=== PATIENT | female | born 1950 | race Caucasian/White ===

== ENCOUNTER 2025-02-21 14:00 | Outpatient (AMB) | payer MEDICARE, BC, SELFPAY ==
--- NOTE | 2025-02-21 14:12 | A.OFFVIS_ITS ---
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 was unaware she had afib Artificial Intelligence Specialist Required: No Allergies prochlorperazine [From Compazine] Allergy (Mild, Verified 02/21/25 14:17) low bp Medication List - Last Reconciled 02/22/25 by Matheus Greene MD alprazolam 0.25 mg PO DAILY atenolol 50 mg PO BID atorvastatin 10 mg PO DAILY clonidine HCl 0.1 mg PO .qhs cyclobenzaprine 5 mg PO PRN gabapentin 300 mg PO TID ipratropium bromide intranasal losartan 100 mg PO DAILY pantoprazole 40 mg PO DAILY zolpidem 5 mg PO BEDTIME PRN HPI Comments Details: Thank you for referring Cynthia in cardiology consultation today for questionable atrial fibrillation. She says she has had palpitations for long time when she was in his 40s around perimenopausal time. No diagnose was made at that time. She said then she was doing well for many years and recently had some symptoms of palpitation but no prolonged irregular heartbeat or palpitations. She recently had a neurologic appointment due to tremors and was told that she might have had atrial fibrillation. She was not sure as to where that came from. She has longstanding history of hypertension which has been difficult control. She does have labile blood pressure. She had been tried on hydrochlorothiazide but developed lightheadedness to with and that had to be stopped. She also developed leg edema related to amlodipine therapy and that has been discontinued . She has noted leg swelling with even low-dose amlodipine at 2.5 mg. She comes in today and blood pressure is mildly elevated in the systolic 140s range. She says this is not unusual. She does have still intermittent leg edema especially warm weather and has developed some venous disease in his scheduled to see vascular surgery in near future. She denies any episodes of syncope. Denies any office episodes of orthopnea, PND, leg edema. She does have exertional shortness of breath. Denies any clear exertional chest pain. No neurologic events. She does complain of symptoms of fatigue during the day. She has never had workup for sleep apnea but says that she has not had a reason to pursue that. She says she does not sleep well all night. She does have component of anxiety. She is only taking clonidine at once a day at nighttime currently. [facility] Medical History (Updated 02/22/25 @ 14:34 by Matheus Greene MD) HTN (hypertension) Review of Systems Const Denies chills, Denies daytime sleepiness, Denies fatigue, Denies fever(s), Denies frequent falls, Denies poor appetite, Denies snoring, Denies stops breathing during sleep, Denies weakness, Denies weight gain and Denies weight loss Eyes Denies loss of vision ENT Denies dizziness and Denies hearing loss Card Denies chest pain, Denies claudication, Denies leg edema, Denies lightheadedness, Denies palpitations, Denies dyspnea, Denies dyspnea on exertion and Denies orthopnea Resp Denies cough, Denies excessive phlegm production, Denies dyspnea, Denies dyspnea on exertion, Denies snoring and Denies wheezing GI Denies abdominal pain, Denies hematochezia, Denies change in bowel habits, Denies nausea and Denies vomiting Denies urinary frequency and Denies dysuria Musc Denies arthralgias, Denies muscle weakness, Denies numbness and Denies other (frequent falls) Skin/Breast Denies nail changes and Denies rash Neuro Denies Abnormal speech present, Denies dizziness, Denies frequent falls, Denies loss of vision, Denies memory loss, Denies numbness and Denies weakness Psych Denies depression and Denies memory loss Endo Denies fatigue and Denies palpitations Blade/Lymph Reports easy bruising and Reports other (anemia) Aller/Immun Denies wheezing Physical Exam Vital Signs: Last Vital Signs Pulse 54 02/21/25 14:14 BP 144/78 H 02/21/25 14:14 BMI result Body Mass Index 27.8 Const General: cooperative, comfortable, no acute distress, alert, awake, Physically active, anxious and well groomed Nutritional Appearance: average body habitus Orientation/consciousness: patient oriented x3 Limitations: no limitations HEENT Head: Yes normocephalic and Yes atraumatic Neck Neck: Yes trachea midline, Yes supple and Yes no JVD Resp Effort & Inspection: normal respiratory effort Auscultation: clear to auscultation bilaterally Cardio Jugular venous distension: no JVD Palpation: normal PMI Rate: regular rate Rhythm: regular rhythm Heart sounds: S1 normal heart sound present, S2 normal heart sound present, no click, no gallops and no murmurs GI Auscultation: normal bowel sounds Skin General skin exam: no rashes or lesions noted Neuro General: patient oriented x3 and no focal motor deficits Speech: No Abnormal speech present Extrem General: Yes no clubbing, cyanosis or edema Psych Appearance: grossly normal Affect: Anxious affect present Office Procedures EKG Details: EKG shows sinus bradycardia at 54 beats per minute [id number], Complete Assessment & Plan Assessment & Plan (1) Short of breath on exertion: Code(s): R06.02 - Shortness of breath Plan: Shortness of breath on exertion in this elderly woman with multiple risk factors. Need to rule out structural heart disease. I do not see any echocardiogram done in the near future. She does have history of mitral valve prolapse although clinically does not have any significant mitral regurgitation. Will obtain echocardiogram to assess for LV systolic and diastolic function to evaluate for hypertensive heart disease as well as pulmonary hypertension to evaluate for mitral valve pathology. We discussed about change in guidelines for mitral valve prolapse diagnose. She understands agrees. She also has strong family history for coronary artery disease and has multiple risk factors for the same. I have therefore suggest her to undergo exercise myocardial perfusion imaging to further assess for the same. She understands and agrees. (2) Cardiac arrhythmia: Code(s): I49.9 - Cardiac arrhythmia, unspecified Plan: Patient with questionable history of atrial fibrillation. There was no clear recorded events. She does not have any symptoms suggestive of atrial fibrillation prolonged palpitation. She does have occasional symptoms of skipped heartbeats which might be related to extra systoles such as PACs and PVCs. Will suggest a 7 day Holter monitor to rule out any significant arrhythmias. Diagnose of atrial fibrillation will manager exchange and therefore it is important to pursue diagnose if possible. I have advised her to consider investing in smart phone based EKG device to help us with any symptomatic atrial fibrillation diagnose. She understands agrees. Stress mitigation strategies were discussed. Avoidance of stimulants was discussed. (3) HTN (hypertension): Code(s): I10 - Essential (primary) hypertension Category: Medical Plan: Hypertension which appears to be labile with intolerance to lot of different medications. We discussed about pathophysiology of leg edema and amlodipine therapy. She does not have venous disease and this might explain her leg edema. She is going to follow up with vascular surgery in near future to treat that. Once status done may consider restarting amlodipine therapy again. She is having symptoms of fatigue which is probably related to combination use of atenolol and clonidine causing chronotropic incompetence. Consider tapering and discontinuing clonidine therapy. Follow-up blood pressure readings and if she has significantly elevated blood pressure at that point time can consider an alternative therapy including spironolactone therapy. Low-salt diet was discussed. Stress mitigation strategies were discussed. Target goal LDL less than 100 mg/dL for now Follow up in the clinic in 3 months time, sooner p.r.n.. Orders: Orders CA stress test Today R06.02 - Shortness of breath NM cardiolite stress test 2 Weeks R07.9 - Chest pain, unspecified ECG 7 day holter monitor Today I49.9 - Cardiac arrhythmia, unspecified CA echo transthoracic complete Today I10 - Essential (primary) hypertension Medications: New clonidine HCl 0.1 mg PO .qhs Coding Level of Care Code New Pt Level 4 (32475) Complex EM visit Add On G2211 Diagnoses Short of breath on exertion R06.02 Cardiac arrhythmia I49.9 HTN (hypertension) I10 CPT Codes EKG - CPT: 26229-[id number], Complete ([id number])
[2025-02-21 14:14] VITALS: BP 144/78; PULSE 54; BMI 27.8
--- OUTSIDE RECORDS SUMMARY | 2025-02-21 15:57 | XMS_ITS | Clinical Summary ---
Author Organization [facility] Address [address] [place] [address] Care Team Providers Care Labor Employment Associate Name Role Phone Colin Carlson MD Primary Care Provider [phone] Allergies Active Allergy Reactions Criticality Noted Date Comments Prochlorperazine Other (See Comments) Low 5 Ringing in ears, and dizziness Medications gabapentin (NEURONTIN) 300 MG capsule Take 1 capsule (300 mg total) by mouth 2 times a day. Active cyclobenzaprine (FLEXERIL) 5 MG tablet Take 1 tablet (5 mg total) by mouth. Active losartan (COZAAR) 100 MG tablet Take 1 tablet (100 mg total) by mouth daily. 07/02/2024 Active atenolol (TENORMIN) 50 MG tablet Take 1 tablet (50 mg total) by mouth 2 times a day. Active atorvastatin (LIPITOR) 10 MG tablet Take 1 tablet (10 mg total) by mouth. 06/30/2024 Active PANTOprazole (PROTONIX) 40 MG EC tablet Take 1 tablet (40 mg total) by mouth. Active cloNIDine (CATAPRES) 0.1 MG tablet 1 tablet (0.1 mg total) by Mouth/Oral Cavity route every 12 hours. 07/12/2024 Active zolpidem (AMBIEN) 5 MG tablet Take 1 tablet (5 mg total) by mouth nightly as needed. Active cyanocobalamin (VITAMIN B-12) 250 MCG tablet Take 1 tablet (250 mcg total) by mouth. Active multivitamin with minerals (Oncovite) Tab tablet Take 1 tablet by mouth daily. Active ALPRAZolam (XANAX) 0.25 MG tablet 1 tablet by Mouth/Oral Cavity route every 12 hours. 12/08/2024 Active ipratropium (ATROVENT) 0.06 % nasal sprayIndication s:Vasomotor rhinitis 2 sprays into each nostril 3 (three) times a day. 15 mL 11 12/22/2024 Active Active Problems Problem Noted Date Diagnosed Date Diverticulitis 09/27/2024 Gastroesophageal reflux disease 09/27/2024 Hypertension 09/27/2024 Mitral valve prolapse 09/27/2024 Encounters Date Type Department Care Team Description 01/31/2025 10:30 AM EDT Office Visit [facility] [place] [address] [place] [address] Ramiro Reynolds MD Familial tremor (Primary Dx); Idiopathic peripheral neuropathy; Vitamin D deficiency, unspecified; Tachycardia; Hypertension, unspecified type; Mitral valve prolapse 01/31/2025 Travel 12/22/2024 11:00 AM EDT Office Visit [facility] [address] [id number] Brannon Mark MD Acute non-recurrent maxillary sinusitis (Primary Dx); Vasomotor rhinitis 12/05/[address] [facility] [address] [place] [id number] Ramiro Reynolds MD 11/30/2024 Orders Only [facility] [place] [address] [place] [phone] Neurology, Scan from Last 3 Months Family History Medical History Relation Name Comments Tremor Brother Parkinson's disease Cousin Heart disease Father Tremor Father Lupus Mother at the age of 29 Relation Name Status Comments Brother Cousin Alive Father Mother Social History Tobacco Use Types Packs/Day Years Used Date Smoking Tobacco: Never Smokeless Tobacco: Never Tobacco Cessation:Counseling Given: Not Answered Alcohol Use Standard Drinks/Week Comments Not Currently 0 (1 standard drink = 0.6 oz pur e alcohol) Comments No Sex and Gender Information Value Date Recorded Sex Assigned at Not on file Legal Sex Female 12:39 PM EST Gender Identity Not on file Sexual Orientation Not on file 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 Not on file Not on file Last Filed Vital Signs Vital Sign Reading Time Taken Comments Blood Pressure 189/71 10/17/2024 12:34 PM EST Pulse 62 10/17/2024 12:34 PM EST Temperature - - Respiratory Rate 12 10/17/2024 12:34 PM EST Oxygen Saturation 96% 01/31/2025 10:34 AM EDT Inhaled Oxygen Concentration - - Weight 69.9 kg (154 lb) 01/31/2025 10:34 AM EDT Height 160 cm (5' 3 ) 01/31/2025 10:34 AM EDT Body Mass Index 27.28 01/31/2025 10:34 AM EDT Plan of Treatment Upcoming Encounters Date Type Department Care Team (Late st Contact Info) Description 04/21/2025 3:00 PM EDT Consult [facility] [place] [facility] [address] [place] [address] Ramiro Reynolds MD [address] [address] Cecy Disla MD [address] [place] [address] 06/20/2025 2:00 PM EDT Procedure visit [facility] [address] [place] [address] [address] [place] [address] Ramiro Reynolds MD [address] [facility] [address] [place] [address] Idris Calvert MD [address] [place], [place] [address] 08/07/2025 11:00 AM EST Office Visit [facility] [place] [address] [place] [phone] Ramiro Reynolds MD [address] [facility] [address] [place] [address] Health Maintenance Due Date Last Done Comments Hepatitis C Virus Screening 1950 DTaP/Tdap/Td Vaccines (1 - Tdap) 1967 Pneumococcal Vaccines 50+ (1 of 2 - PCV) 1967 Zoster (Shingles) Vaccine (1 of 2) 1998 DXA Bone Density (Females,Ag es 65 and older) 2013 RSV Vaccine 60 years and old er and Patients (1 - 1-dose 75+ series) 2023 COVID-19 Vaccine (2 - 2023-2 5 season) 2024 09/11/2021 Influenza Vaccine 04/21/2025 09/11/2021 Hepatitis B Vaccines Aged Out No long er eligible based on patient's age to complete this topic Procedures Procedure Name Priority Date/Time Associated Diagnosis Comments PATHOLOGY Routine 11/30/2024 8:17 AM EDT from Last 3 Months Results * Pathology (11/30/2024 8:17 AM EDT) Skin us Scan Neurology PATHOLOGY/CYTOLOGY ORDERABLES Ed ited Result - Final from Last 3 Months Insurance MEDICARE PART A & B [facility] MEDICARE PART A & B [facility] Care Teams Labor Employment Associate Relationship Specialty Start Date End Date Colin Carlson MD [facility] Hilariochristopher [place] [address] [address] PCP - General 09/06/24
== END 2025-02-21 14:57 | disposition home or self-care (01) ==
LOC: HO.HCS 14:09
PROVIDERS: Visit Provider Internal Medicine Cardiovascular Disease
DX: R06.02 Shortness of breath (principal); I49.9 Cardiac arrhythmia, unspecified; I10 Essential (primary) hypertension
CPT/HCPCS: 93010; 99204; G2211

== ENCOUNTER → 2025-02-21 14:00 | Outpatient (BNVA) | payer MEDICARE, BC, SELFPAY | PROVIDERS: Visit Provider Internal Medicine Cardiovascular Disease | DX: I10 Essential (primary) hypertension (principal); I49.9 Cardiac arrhythmia, unspecified; R06.02 Shortness of breath; R60.0 Localized edema; R00.2 Palpitations | CPT/HCPCS: 93005; 99202 ==

== ENCOUNTER → 2025-04-05 14:03 | Outpatient (REF) | payer MEDICARE, BC, SELFPAY ==
--- OUTSIDE RECORDS SUMMARY | 2025-03-20 05:15 | XMS_ITS | Continuity of Care Document ---
Author Organization [facility] Address [address] [place] [address] Phone Care Team Providers Care Hair Dryer Name Role Phone Luda Parada MD Unavailable Unavailable Allergies, Adverse Reactions, Alerts Substance Reaction Status Criticality epinephrine Active No Information DIPHENHYDRAMINE HCL Active No Infor mation Medications Medication Instructions Dosage Effective Dates (start - stop) Status Comments clonidine HCl 0.2 mg tablet - Ac tive cyclobenzaprine 5 mg tablet - Ac tive atenolol 25 mg tablet - Active gabapentin 100 mg capsule - Acti ve losartan 25 mg tablet - Active Xanax 0.25 mg tablet - Active Procedures Procedure Date Duplex Scan-extrem Veins; Uni/ [place] & [place] J Duplex Scan-extrem Veins; Uni/ [place] & [place] J Inj Scleros Solut; Mx Veins 1- [place] & [place] J Ultrason Guidan Needle Bx-rad- [place] & [place] J Varithena, Single Truncal Vein - [place] & [place] Varithena, Single Truncal Vein - [place] & [place] Office/Outpt E&M Established 15 Mins- [place] & [place] Surgical Stockings CVR Reveal Panty 20-3 0 Office/Oupt E&M New Pt 60 Mins- [place] & [place] Duplex Scan-extrem Veins; Comp- [place] & [place] Advance Directives Directive Yes / No Effective Date File Name No Information Encounters Encounter Description Practice Location Reason(s) For Visit Diagnoses Date Provider Providers Copied on Encounter [facility] MD STEIN, [address] [place] [address] Dr Beckham [address] [address], [id number], tel:[phone] [facility] [place] Encounter for follow-up examination after completed treatment for conditions other than malignant neoplasmChroni c venous hypertension (idiopathic) with other complications of right lower extremity 5 Karma Lares. [address] [place] [address], [address], [place], [place], [id number], [place]. tel:[phone] Referring Provider: Thais Payan [facility] [address], [place], [address]. tel:[phone] [facility], [address] [place] [address] Dr Beckham [address] [address], [id number], [place] tel:[phone] [facility] Encounter for follow-up examination after completed treatment for conditions other than malignant neoplasmChroni c venous hypertension (idiopathic) with other complications of right lower extremity 5 Rosalino BURGESS RVT, VERONICA Perales. [address] [place] [address], [place], [id number], [place]. tel:[phone] Referring Provider: Thais Payan [facility] [address], [place], [address]. tel:[phone] [facility], [address] [place] [address] Dr Bekcham [address], [id number], [place] tel:[phone] [facility] Chronic venous hypertension (idiopathic) with inflammation of right lower extremity 5 Rosalino BURGESS RVT, VERONICA Perales. [address] [place] [address], [place], [id number], [place]. tel:[phone] Referring Provider: Thais Payan [facility] [address], [place], [address]. tel:[phone] [facility], [address] [place] [address] Dr Beckham [address], [id number], [place] tel:[phone] [facility] - [place] Varicose veins of right lower extremity with other complications Davion-2 5 Rosalino BURGESS RVT, VERONICA Perales. [address] [facility], [address], [place], [id number], [place]. tel:[phone] Referring Provider: Thais Payan [facility] [address], [place], [address]. tel:[phone] [facility], [address] [place] [address] Dr Beckham [address], [id number], [place] tel:[phone] [facility] Chronic venous hypertension (idiopathic) with inflammation of right lower extremity Davion-2 5 Rosalino BURGESS RVT, VERONICA Perales. [address] [place] [address], [address], [place], [id number], [place]. tel:[phone] Referring Provider: Thais Payan [facility] [address], [place], [address]. tel:[phone] Office/Outpt E&M Established 15 [facility] [place] [facility], [address] [place] [address] Dr Beckham [address], [id number], [place] tel:[phone] [place] - [place] Chronic venous hypertension (idiopathic) without complications of bilateral lower extremity Davion-2 5 Rosalino BURGESS RVT, VERONICA Perales. [facility], [address], [place], [id number], [place]. tel:[phone] Referring Provider: Thais Payan [facility] [address], [place], [address]. tel:[phone] [facility], [address] [place] [address] Dr Beckham [address]Suite Aisha Navarro [place], [id number], [place] tel:[phone] CVR - [facility] Chronic venous hypertension (idiopathic) without complications of bilateral lower extremity 5 Rosalino BURGESS RVT, VERONICA Perales. [address] [place] [address], [place], [id number], [place]. tel:[phone] Office/Oupt E&M New Pt 60 Mins- [place] & [place] [facility], [address] [place] [address] Dr Beckham [address], [id number], [place] tel:[phone] CVR - [facility] Chronic venous hypertension (idiopathic) without complications of bilateral lower extremityEssen tial (primary) hypertensionVe nous insufficiency (chronic) (peripheral) 5 Rosalino BURGESS RVT, VERONICA Perales. [address] [place] [address], [place], [id number], [place]. tel:[phone] Referring Provider: Thais Payan [facility] [address], [place], [address]. tel:[phone] [facility], [address] [place] [address] Dr Beckham [address] [place], [id number], [place] tel:[phone] [facility] Chronic venous hypertension (idiopathic) with other complications of bilateral lower extremity 5 Rosalino BURGESS RVT, VERONICA Perales. [address] [place] [address], [place], [id number], [place]. tel:[phone] Referring Provider: Thais Payan [facility] [address], [place], [address]. tel:[phone] Family History Family Member Type Diagnosis Age At Onset No Information Payers Payer name Insurance type Covered democrat ID Authoriza tion(s) Medicare SHAGGY GREENE [id number] Social History Type Description Quantity Date Captured Comments Sex Female Smoking Status No Information Chief Complaint And Reason For Visit No Information Reason For Referral Reason For Referral No Information Plan Of Treatment Date Type Action Status Goal Diet education completed Goal Diet education completed Referral Ordered: Weight management: Referral to physician timeframe: 3 Months (related to Body mass index (BMI) 27.0-27.9, adult) ordered Referral Ordered: Weight management: Referral to physician timeframe: 3 Months (related to Body mass index (BMI) 27.0-27.9, adult) ordered Appointment Cynthia Thomas BOOKED Appointment Cynthia Thomas BOOKED Appointment ThomasLyle chauhanry BOOKED Appointment Thomas, Cynthia BOOKED Appointment ThomasLyle chauhanry BOOKED Appointment Lyle Thomasry BOOKED Appointment Cynthia Thomas BOOKED History Of Present Illness Encounter Date Complaint History Of Prese nt Illness No Information Functional Status Date Functional Assessmen t No Information Instructions Date Instruction Additional Infor asia Diet education Related to Body mass index (BMI) 27.0-27.9, adult Giving Encouragement to exercise Related to Body mass index (BMI) 27.0-27.9, adult Lifestyle education Related to B theresa mass index (BMI) 27.0-27.9, adult Patient education booklet given Related to Chronic venous hypertension (idiopathic) without complications of bilateral lower extremity Pre and post instruc tions reviewed and provided Related to Chronic venous hypertension (idiopathic) without complications of bilateral lower extremity Patient education booklet given Related to Chronic venous hypertension (idiopathic) without complications of bilateral lower extremity Pre and post instruc tions reviewed and provided Related to Chronic venous hypertension (idiopathic) without complications of bilateral lower extremity Diet education Related to Body mass index (BMI) 27.0-27.9, adult Giving Encouragement to exercise Related to Body mass index (BMI) 27.0-27.9, adult Lifestyle education Related to B theresa mass index (BMI) 27.0-27.9, adult Assessments Type Assessment Date No Information Patient Care Teams Name Effective Dates (start - stop) Status Members No Information
--- NOTE | 2025-04-05 14:07 | HM_ITS ---
Conclusion: 1. Patient was monitored for total period of 2 days and 5 hours 2. Baseline was normal sinus rhythm with average heart rate of 61 beats per minute 3. Frequent sinus bradycardia noted, 52% of time heart rate below 60 beats per minute with no significant pauses 4. Rare PACs noted next 5. Patient marked the counter 1 time with no reported symptoms correlating with short run of PACs MTDD
--- NOTE | 2025-04-05 14:07 | CA_ITS ---
Transthoracic Echocardiogram Patient (Last, First, Middle): Cynthia Thomas M Gender: Female Date of : 1950 Age: 74 Procedure Date: 04/05/2025 Procedure Type: Transthoracic Echocardiogram Location: OP Height: 160.02 cm Weight: 69.85 kg BSA: 1.73 m2 Heart Rate: bpm BP: 148 / 68 mmHg Flight Crew Scheduler: Referring MD: Matheus Greene MD Symptoms: I10 - Essential (primary) hypertension Study Quality: Good ECG Rhythm: Sinus Conclusions: - The left ventricular systolic function is normal. The calculated ejection fraction is 64% by biplane method. - Evidence suggests grade II (moderate) diastolic dysfunction. - No obvious valvular pathology seen on this study. Findings Left Ventricle Normal left ventricular cavity size. The left ventricular systolic function is normal. The calculated ejection fraction is 64% by biplane method. There is no evidence of regional wall motion abnormalities. Evidence suggests grade II (moderate) diastolic dysfunction. There is mild septal asymmetric hypertrophy. LV peak GLS -19.8%. Right Ventricle Normal right ventricular cavity size and systolic function. Atria The left atrium is mildly dilated. The right atrium is normal in size. Aortic Valve There is a normal trileaflet aortic valve. There is no aortic valve stenosis. There is no aortic valve regurgitation. Mitral Valve The mitral valve appears normal. There is mild mitral valve regurgitation. There is no mitral valve stenosis. Pulmonic Valve The pulmonic valve is likely normal. Tricuspid Valve There is trace tricuspid valve regurgitation. There is no evidence of pulmonary hypertension. Great Vessels The asc aorta is normal in size. Venous The inferior vena cava is normal in size and collapses greater than 50% with inspiration. Pericardium/Pleural There is no evidence of pericardial effusion. Prior Study Comparison No prior study available for comparison. Recommendations, Care & Conclusions No obvious valvular pathology seen on this study. Measurements 2D Linear Measurements IVSd: 1.02 0.6-0.9/0.6-1.0 cm LVIDd: 4.65 3.9-5.3/4.2-5.9 cm LVIDd Index: 2.69 2.4-3.2/2.2-3.1 cm/m2 LVIDs: 2.94 2.0-3.6 cm LVPWd: 0.98 0.7-1.1 cm Ao Root: 2.70 2.1-3.5 cm LA Diam: 3.30 2.7-3.8/3.0-4.0 cm LAIDs Index: 1.91 1.5-2.3 cm/m2 LV Mass: 201.41 67-162/88-224 g LV Mass Index: 116.42 43-95/49-115 g/m2 LVOT Diam: 2.00 3.0+(-)1.3 cm 2D Systolic Function EF 4C: 65.50 >55% EF 2C: 62.70 >55% EF BiP: 63.50 >55% Mitral Valve MV Pk E: 1.02 MV PK A: 0.90 MV Decel Time: 209.00 E/A: 1.10 E'Lateral: 7.29 E'Medial: 5.44 E/E' Med: 18.80 E/E' Lat: 14.00 PHT: 61.00 MVA PHT: 3.61 Decel Pierce: 4.88 Aortic Valve AoV Pk Vinny: 1.38 AoV Mn Vinny: 0.93 AoV VTI: 0.35 AoV Pk Grad: 8.00 Aov Mn Grad: 4.00 REGGIE Cont.VTI: 2.17 LVOT LVOT Pk Vinny: 0.84 LVOT Mn Vinny: 0.56 LVOT VTI: 0.24 LVOT Pk Grad: 3.00 LVOT Mn Grad: 1.00 LVOT Diam: 2.00 LVOT Area: 3.14 Diastolic Function MV Pk E: 1.02 MV Pk A: 0.90 E/A: 1.10 E'Medial: 5.44 E/E' Med: 18.80 E' Laterial: 7.29 E/E' Lat: 14.00 Right Ventricle TAPSE (mm): 27.00 TVS' Vinny: 10.00 Tricuspid Valve TR Pk Vinny: 2.00 TR Pk Grad: 16.00 RA Press: 3.00 RVSP: 19.00 Great Vessels Aorta Ao Root-2D: 2.70 2.0-3.7 cm Ao Asc: 3.00 2.1-3.4 cm Pulmonary Valve PV Pk Vinny: 0.79 Peak PV Grad: 3.00 Updated in Other Vendor System with Status of Final Javier Cueto MD electronically signed on 04/06/2025 3:21:08 PM with status of Final
--- OUTSIDE RECORDS SUMMARY | 2025-04-05 14:50 | XMS_ITS | Clinical Summary ---
Author Organization [facility] Address [address] [place] [address] Care Team Providers Care Grit Removal Operator Name Role Phone Colin Carlson MD Primary Care Provider [phone] Allergies Active Allergy Reactions Criticality Noted Date [...] Description 01/31/2025 10:30 AM EDT Office Visit [facility] Neurology [place] [address] [place] [phone] Ramiro Reynolds MD Familial tremor (Primary Dx); Idiopathic peripheral neuropathy; Vitamin D deficiency, unspecified; Tachycardia; Hypertension, unspecified type; Mitral valve prolapse 01/31/2025 Travel from Last 3 Months Family History Medical [...] Info) Description 04/21/2025 3:00 PM EDT Consult [facility] [place] [address] [facility] [address] [place] [phone] Ramiro Reynolds MD [address] [facility] [address] [place] [address] Cecy Disla MD [address] [place] [address] [place] [address] 06/20/2025 2:00 PM EDT Procedure visit [facility] Neuromuscular [facility] [address] [facility] [address] [place] [address] Ramiro Reynolds MD [address], [place] [address] Idris Calvert MD [address] [place] [address] 08/07/2025 11:00 AM EST Office Visit [facility] Neurology [place] [address] [place] [id number] Ramiro Reynolds MD [address] [place] [address] Health Maintenance Due Date Last Done Comments [...] on patient's age to complete this topic Insurance MEDICARE PART A & B [facility] [email or web address] MEDICARE PART A & B [employer] Care Teams Grit Removal Operator Relationship Specialty Start Date End Date Colin Carlson MD [address] [facility] [place] [address] [id number] PCP - General 09/06/24
--- OUTSIDE RECORDS SUMMARY | 2025-04-05 14:50 | XMS_ITS ---
Author Name [facility] ([place], [place]) Organization Unknown History of Medication Use Medication Directions Dispensed Refills Start Date End Date Stat us ipratropium (ATROVENT) 0.06 % nasal spray 2 sprays into each nostril 3 (three) times a day. 12/22/2024 active ALPRAZolam (XANAX) 0.25 MG tablet 1 tablet by Mouth/Oral Cavity route every 12 hours. 12/08/2024 active cloNIDine (CATAPRES) 0.1 MG tablet 1 tablet (0.1 mg total) by Mouth/Oral Cavity route every 12 hours. 07/12/2024 active ALPRAZolam (XANAX) 0.5 MG tablet Take 1 tablet (0.5 mg total) by mouth nightly as needed. active cyanocobalamin (VITAMIN B-12) 250 MCG tablet Take 1 tablet (250 mcg total) by mouth. active gabapentin (NEURONTIN) 300 MG capsule Take 1 capsule (300 mg total) by mouth 2 times a day. active PANTOprazole (PROTONIX) 40 MG EC tablet Take 1 tablet (40 mg total) by mouth. active zolpidem (AMBIEN) 5 MG tablet Take 1 tablet (5 mg total) by mouth nightly as needed. active Allergies Allergen Reaction Severity Comment Documented Date Source Statu s PROCHLORPERAZINE OTHER (SEE COMMENTS) Ringing in ears, and dizziness 09/27/2024 [facility] active Problems Problem Status Onset Date Problem Type Date of Resolution Source Hypertension active 2024-09-27 ProblemAct [facility] Idiopathic peripheral neuropathy active EncounterDiagnosisAct [facility] Mitral valve prolapse active 2024-09-27 ProblemAct [facility] Tachycardia active EncounterDiagnosisAct [facility] Gastroesophageal reflux disease active 2024-09-27 ProblemAct [facility] Familial tremor active EncounterDiagnosisAct [facility] Vitamin D deficiency, unspecified active EncounterDiagnosisAct [facility] Diverticulitis active 2024-09-27 ProblemAct [facility] Encounters Encounter Type Encounter Reason Primary Diagnosis Location Date Ambulatory Essential tremor Essential tremor [facility]:Net 01/31/2025 Ambulatory Sinus Problem Sinus Problem [facility] 12/22/2024 Ambulatory Parkinson's disease without dyskinesia, 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, without mention of fluctuations [facility] 11/01/2024 Ambulatory Chronic migraine without aura, intractable, without status migrainosus Chronic migraine without aura, intractable, without status migrainosus [facility] 10/17/2024 Ambulatory Migraine without aura, not intractable, without status migrainosus Migraine without aura, not intractable, without status migrainosus [facility] 09/28/2024 Ambulatory Parkinson's disease without dyskinesia, 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
--- OUTSIDE RECORDS SUMMARY | 2025-04-05 14:50 | XMS_ITS | Clinical Summary ---
Author Organization [address] [place] [address] [place] [phone] Phone Care Team Providers Care Home Teaching Grades 9 Thru 12 Teacher Name Role Phone Gilbert Carlson MD Primary Care Provider [phone] Medications pantoprazole (PROTONIX) 40 mg EC tabletIndicatio ns:GERD (gastroesophage al reflux disease) TAKE 1 TABLET BY MOUTH EVERY DAY 90 tablet 1 11/10/2024 Active losartan (COZAAR) 50 mg tablet TAKE 1 TABLET BY MOUTH EVERY DAY IN THE EVENING 90 tablet 1 12/27/2024 Active cloNIDine (CATAPRES) 0.1 mg tablet TAKE 1 TABLET BY MOUTH TWICE A DAY 180 tablet 1 02/06/2025 Active Encounters Date Type Department Care Team Description 03/06/2025 Telephone [facility] Cardiology [address] [place] [address] [place] [address] Justine Gregg NP 02/21/[address] [place] [address] Gilbert Carlson MD Medical Records 02/15/2025 Telephone Gastroenterology - [address] [place] [address] Juana Tapia MD Advice Only from Last 3 Months Surgical History Surgery Date Site/Laterality Comments COLONOSCOPY PROCEDURE: HISTORICAL COLONOSCOPY OTHER SURGICAL HISTORY PROCEDURE: DIAGNOSTIC MAMMOGRAM Medical History Medical History Date Comments Hyperlipidemia DX:Hyperlipidemi a Essential hypertension DX:Essent ial hypertension Choroidal nevus DX:Choroidal nev us Diverticulosis of colon DX:Diver ticulosis of colon GERD (gastroesophageal reflux disease) DX:GERD (gastroesophageal reflux disease) Insomnia DX:Insomnia IBS (irritable bowel syndrome) D X:IBS (irritable bowel syndrome) Migraine DX:Migraine Spinal stenosis DX:Spinal stenos is Anxiety DX:Anxiety Carpal tunnel syndrome DX:Carpal tunnel syndrome Family History Medical History Relation Name Comments Other: Cardiovascular Disease Father Other: lupus Mother Relation Name Status Comments Father Mother Social History Tobacco Use Types Packs/Day Years Used Date Smoking Tobacco: Never Smokeless Tobacco: Never Alcohol Use Standard Drinks/Week Comments Yes 0 (1 standard drink = 0.6 oz pur e alcohol) Comments Unknown Sex and Gender Information Value Date Recorded Sex Assigned at Not on file Legal Sex Female 10:09 AM EST Gender Identity Not on file Sexual Orientation Not on file Obstetrics History Last Filed Vital Signs Vital Sign Reading Time Taken Comments Blood Pressure 136/74 07/14/2024 9:25 AM EDT Sit ting L Arm Pulse 71 07/14/2024 9:25 AM EDT Temperature - - Respiratory Rate - - Oxygen Saturation - - Inhaled Oxygen Concentration - - Weight 71.2 kg (157 lb) 07/14/2024 9:25 AM EDT Height 160 cm (5' 3 ) 07/14/2024 9:25 AM EDT Body Mass Index 27.81 07/14/2024 9:25 AM EDT Plan of Treatment Health Maintenance Due Date Last Done Comments DTaP,Tdap,and Td Vaccines (1 - Tdap) 1967 Pneumococcal Vaccine: 50+ Years (1 of 1 - PCV) 1998 Zoster Vaccines (1 of 2) 1998 Cholesterol Screening (Lipid Panel) 08/19/2022 Depression Screening 08/19/2022 Falls Risk Assessment 08/19/2022 Hepatitis C Screening 08/19/2022 Medicare Annual Wellness Visit 08/19/2022 Osteoporosis Screening (Bone Density Screening) 08/19/2022 Social Influencers of Health Screening 08/19/2022 Hypertension/CHF/CAD Annual BMP Blood Test 09/06/2022 09/03/2018, 09/03/2018 RSV Immunization Adult Patients (1 - 1-dose 75+ series) 2023 COVID-19 Vaccine ( - 2023-2 5 season) 2024 Influenza Vaccine (#1) 2025 9, 08/23/2018 HIB Vaccines Aged Out No longer eligi ble based on patient's age to complete this topic HPV Vaccines Aged Out No longer eligi ble based on patient's age to complete this topic Hepatitis A Vaccines Aged Out No long er eligible based on patient's age to complete this topic Hepatitis B Vaccines Aged Out No long er eligible based on patient's age to complete this topic IPV Vaccines Aged Out No longer eligi ble based on patient's age to complete this topic MMR Vaccines Aged Out No longer eligi ble based on patient's age to complete this topic Meningococcal ACWY Vaccine Aged Out N o longer eligible based on patient's age to complete this topic Meningococcal B Vaccine Aged Out No l onger eligible based on patient's age to complete this topic RSV Immunization Patients Under 20 months Aged Out No longer eligible b ased on patient's age to complete this topic Varicella Vaccines Aged Out No longer eligible based on patient's age to complete this topic Insurance MEDICARE Care Teams Home Teaching Grades 9 Thru 12 Teacher Relationship Specialty Start Date End Date Gilbert Carlson MD [address] [place] [address] PCP - General 09/23/16
--- OUTSIDE RECORDS SUMMARY | 2025-04-05 14:50 | XMS_ITS | Clinical Summary ---
Author Organization [facility] Address [address] [place] [address] Care Team Providers Care Kettle Fry Cook Operator Name Role Phone Unavailable Primary Care Provider Unavailabl e Allergies Active Allergy Reactions Criticality Noted Date Comments Prochlorperazine 09/03/2018 Diphenhydramine Other (See Comments) 09/03/2018 (Benedryl) Procaine 09/03/2018 Medications Medication Sig Dispensed Refills Start Date End Date Status ALPRAZolam (XANAX) 0.25 MG tablet Take 0.25 mg by mouth every 12 (twelve) hours as needed. 5 08/21/2018 Active amLODIPine (NORVASC) tablet 5 mg Take 5 mg by mouth daily. 3 08/11/2018 Active cyclobenzaprine (FLEXERIL) 5 MG tablet TAKE 1 TO 2 TABLETS BY MOUTH 3 TIMES A DAY NEEDED FOR MUSCLE SPASMS 0 07/14/2018 Active atenolol (TENORMIN) tablet 50 mg Take 50 mg by mouth 2 (two) times a day. 3 07/27/2018 Active gabapentin (NEURONTIN) 300 MG capsule One by mouth TID 2 08/25/2018 Active hyoscyamine (ANASPAZ,LEVSIN) 0.125 MG tablet TAKE 1 TABLET BY MOUTH FOUR TIMES A DAY NEEDED TAKE BEFORE MEALS AND BEDTIME NEEDED 1 08/17/2018 Active FLUAD 0.5 ML JOSE L TO BE ADMINISTERED BY PHARMACIST FOR IMMUNIZATION 0 08/23/2018 Active losartan (COZAAR) tablet 50 mg Take 50 mg by mouth 2 (two) times a day. 11 07/25/2018 Active pantoprazole (PROTONIX) 40 MG tablet Take 40 mg by mouth daily. as directed 11 08/03/2018 Active traZODone (DESYREL) 50 MG tablet Take 50 mg by mouth every night at bedtime. 3 08/04/2018 Active Family History Medical History Relation Name Comments Heart disease Father Intestinal malrotation Father Lupus Mother Relation Name Status Comments Father (Age 77) Mother (Age 29) Social History Tobacco Use Types Packs/Day Years Used Date Smoking Tobacco: Never Smokeless Tobacco: Never Alcohol Use Standard Drinks/Week Comments Yes 2 (1 standard drink = 0.6 oz pur e alcohol) Sex and Gender Information Value Date Recorded Sex Assigned at Not on file Gender Identity Not on file Sexual Orientation Not on file Job Start Date Occupation Industry Not on file Not on file Not on file Last Filed Vital Signs Vital Sign Reading Time Taken Comments Blood Pressure 128/80 09/03/2018 1:26 PM EST Pulse 58 09/03/2018 1:26 PM EST Temperature 36.7 C (98 F) 09/03/2018 1:26 PM EST Respiratory Rate 18 09/03/2018 1:26 PM EST Oxygen Saturation 97% 09/03/2018 1:26 PM EST Inhaled Oxygen Concentration - - Weight 73 kg (161 lb) 09/03/2018 1:26 PM EST Height 160 cm (5' 3 ) 09/03/2018 1:26 PM EST Body Mass Index 28.52 09/03/2018 1:26 PM EST Plan of Treatment Health Maintenance Due Date Last Done Comments Hepatitis C Screening 1950 COVID-19 Vaccine (#1) 05/09/1951 Depression Screening 1960 Preventative Health Evaluation 1966 DTap / Tdap / Td (1 - Tdap) 1967 Shingrix-Zoster Vaccine (1 of 2) 1998 Fall Risk Assessment 2013 Osteoporosis Screening (DEXA Scan) 2013 Pneumococcal Vaccine (1 of 1 - PCV) 2013 RSV Adult > 60+ Yrs or Pregn ant (1 - 1-dose 75+ series) 2023 Influenza Vaccine (#1) 2025 Hepatitis B Vaccines Aged Out No long er eligible based on patient's age to complete this topic RSV Ped < 20 months Aged Out No longe r eligible based on patient's age to complete this topic
--- OUTSIDE RECORDS SUMMARY | 2025-04-05 14:50 | XMS_ITS | Patient Health Record ---
Author Organization [facility] Address [address] [facility] [address] [place] [address] Care Team Providers Care Estimator Lumber Name Role Phone Colin Carlson MD Primary Care Provider Susan Celaya Unavailable [phone] Allergies Allergen (clinical drug ingredient) Drug/Non Drug Allergy documented on EMR Reaction Allergy Type Onset Date Status EPHEDRINE HCL Unknown Drug Allergy Act sera COMPAZINE Dizzy/Ringing in Ears Drug Allergy Active Reason For Referral No Information Medications Medication SIG (Take, Route, Frequency, Duration) Notes Start Date End Date Status Losartan Potassium 25 MG 1 tablet Orally Once a day Active miSOPROStol 200 MCG 2 Orally night befor e procedure; Duration: 1 days 01/05/2020 Unknown Xanax 0.5 MG 1 tablet Orally @ HS Active Estradiol Vaginal Cream 0.01% 1 Gram Vaginally Twice a week; Duration: 90 days 01/16/2020 Unknown Cyclobenzaprine HCl 5 MG 1 tablet as nee ded Orally Active Zolpidem Tartrate 5 MG 1 tablet at bedti me Orally prn Active One Daily For Women - as directed Orally Active Airborne - as directed Orally Unknown Pantoprazole Sodium 40 MG TAKE 1 TABLET BY MOUTH EVERY DAY DIRECTED Oral; Duration: 30 Unknown ALPRAZolam 0.5MG ORAL; Duration: -3 [facility] 10/02/2014 Unknown Vitamin D 1000 UNIT 1 tablet Orally Once a day Unknown Melatonin 10 MG as directed Orally Unknown amLODIPine Besylate 2.5 MG 1 Orally daily [facility] 08/06/20 12 Active Atenolol 50MG 1 tablet Orally twic e a day am, pm [facility] 08/06/2012 Active Flexeril ; Duration: -3 [facility] 10/02/2014 Acti ve Gabapentin 300 MG 1 capsule Orally Onc e a day [facility] 08/15[facility]2014 Active Hyoscyamine Sulfate 0.125MG ORAL; Duration: -3 [facility] 08/2015 Active Elderberry 575 MG/5ML as directed Orally Unknown Social History Tobacco Use: Social History Observation Description Date Details (start date - stop date) Never Smoker NA - NA Tobacco Use/Smoking Question Answer Notes Are you a nonsmoker Alcohol Screen (Audit-C) Question Answer Notes Did you have a drink contain ing alcohol in the past year? Yes Points 2 Interpretation Negative How many drinks did you have on a typical day when you were drinking in the past year? 1 or 2 drinks (0 point) How often did you have a dri nk containing alcohol in the past year? 2 to 4 times a month (2 points) Problems Problem Type SNOMED Code ICD Code Onset Dates Problem Status W/U Status Risk Notes Problem Postmenopausal atrophic vaginitis (27193971) Postmenopausal atrophic vaginitis (N95.2) Active confirmed Problem Incomplete uterovaginal prolapse (750990751) Incomplete uterovaginal prolapse (N81.2) Active confirmed Problem Postmenopausal bleeding (76536534) Postmenopausal bleeding (N95.0) Active confirmed Problem Cystocele (716761298) Cystocele, unspecified (N81.10) Active confirmed Problem Atrophy of vulva (455659508) Atrophy of vulva (N90.5) Active confirmed Problem Functional urinary incontinence (669440205) Functional urinary incontinence (R39.81) Active confirmed Problem Anxiety state (134939875) Anxiety state, unspecified (300.00) Active confirmed Major Problem Benign essential hypertension (4122616) Essential hypertension, benign (401.1) Active confirmed Major Problem Menopausal symptom (46514145) Symptomatic menopausal or female climacteric states (627.2) Active confirmed Major Problem Gynecological examination normal (345450110141395) Routine gynecological examination (V72.31) Active confirmed Major Problem Screening for malignant neoplasm of colon (551215029) Special screening for malignant neoplasms, colon (V76.51) Active confirmed Major Plan Of Treatment Pending Test Test Name Order Date BONE DENSITY 09/01/2017 MM Digital Mammo Screening 09/01/2017 Insurance Providers Payer Name Payer Address Payer Phone Subscriber Number Group Number Insured Name Patient Relationship to Insured Coverage Start Date Coverage End Date MEDICARE [address] DINAH PADILLA [id number] SHARRI VELA Self - patient is the insured BC OF [facility] [id number] [place] [address] [phone] [id number] COLIN VELA Spouse - patient is the spouse of the insured Medical (General) History Medical History History ICD Code Anxiety disorder, unspecified F41.9 Essential (primary) hypertension I10 Menopausal and female climacteric states N95.1 Spinal stenosis, site unspecified M48.00 Herniated disc Atrophy of vulva N90.5 Postmenopausal atrophic vaginitis N95.2 Cystocele, unspecified N81.10 Incomplete uterovaginal prolapse N81.2 Mastodynia N64.4 Surgical History Surgery Date(Month/Year) Colonoscopy [facility] Hospitalization History Reason Date(Month/Year) 4 Vaginal Deliveries
== END ==
LOC: HO.CARD 14:03
PROVIDERS: PCP Internal Medicine; Visit Provider Internal Medicine Cardiovascular Disease
DX: I49.8 Other specified cardiac arrhythmias (principal); I10 Essential (primary) hypertension
CPT/HCPCS: 93242; 93306

== ENCOUNTER → 2025-04-05 14:07 | Outpatient (BNV) | payer MEDICARE, BC, SELFPAY | PROVIDERS: PCP Internal Medicine; Visit Provider Internal Medicine | DX: I49.1 Atrial premature depolarization (principal) | CPT/HCPCS: 93244; 93306; 93356 ==

== ENCOUNTER → 2025-04-24 09:25 | Outpatient (REF) | payer MEDICARE, BC, SELFPAY ==
--- NOTE | ~2025-04-24 | NM_ITS ---
EXERCISE MYOCARDIAL PERFUSION STUDY INDICATION: Shortness of breath TECHNIQUE: The patient was brought in for an exercise perfusion study on 04/24/2025. Patient performed exercise as per Mick protocol and was injected 25 mCi of sestamibi once target heart rate was achieved. Images were obtained using the SPECT gamma camera interlaced with the gating device. Images were obtained in supine position. Resting perfusion study was performed on 04/25/2025. Patient was administered 25 mCi of sestamibi intravenously at rest. Images were then obtained in supine position. Total DLP 129 mGy-cm. Images were processed with the software and compared side to side in short axis, horizontal long axis and vertical long axis views. FINDINGS: Raw aquisition reviewed. Arms by the patient's side. The stress perfusion study showed no significant perfusion abnormality. The gated study shows normal LV systolic function with calculated LVEF of 62%. LV cavity is normal in size. The gated study shows normal wall thickening and contraction of segments. Resting study shows diminished tracer uptake in the mid to distal inferolateral wall. There is improvement with CT attenuation correction suggestive of diaphragmatic attenuation artifact. Gating at rest reveals normal wall motion with ejection fraction at 60%. The findings are consistent with no clear reversible or fixed perfusion defects. NM/NM cardiolite stress test IMPRESSION: 1. Myocardial perfusion imaging study shows normal myocardial perfusion. 2. Gated LVEF is 62% during stress and 60% during rest. 3. Transient ischemic dilatation not present. EKG component of the test reported separately. Electronically signed by: Jaiver Cueto MD 04/26/2025 12:48 PM EDT
--- NOTE | 2025-04-24 09:29 | CA_ITS ---
Acquisition Time: 2025-04-24 09:40:15 Total Exercise Time: 00:06:20 Test Indications: Dyspnea,Palpitations HTN Medications: LOSARTAN ATENOLOL ALPRAZOLAM CLONIDINE GABAPENTIN PANTOPRAZOLE CYCLOBENZAPRINE Protocol: BERNIE Max HR: 129 BPM 89% of Pred: 144 BPM Max BP: 146/82 mmHG Max Work Load: 7.0 METS Exercise stress test with exercise 6 mins 20 secs of Bernie Protocol held at Stage 2, achieving 88% MPHR, with reports of SOB, no chest pain, with isolated PACs and PVCs, with normotensive response to exercise. Without any EKG changes meeting criteria for ischemia. In recovery, pt's breathing returned to basleine. Nuclear images pending. Test reviewed with Dr. Cueto. Referred By: Matheus Greene Electronically Signed By: Chan Leon
--- OUTSIDE RECORDS SUMMARY | 2025-04-24 09:54 | XMS_ITS | Encounter Summary ---
Author Organization [facility] Address [address] [place] [address] Phone Care Team Providers Care Production Sanitizer Name Role Phone Gilbert Carlson MD Primary Care Provider [phone] Encounter Details Date Type Department Care Team (Late st Contact Info) Description 06/28/2021 Procedure [facility] [address] [place] [address] Social History Tobacco Use Types Packs/Day Years Used Date Smoking Tobacco: Never Smokeless Tobacco: Never Comments Unknown Sex and Gender Information Value Date Recorded Sex Assigned at Female 04/15/2021 12:54 PM EDT Legal Sex Female 12:50 PM EDT Gender Identity Female 04/15/2021 12:54 PM EDT Sexual Orientation Bisexual 04/15/2021 12 :54 PM EDT documented as of this encounter Plan of Treatment Not on file documented as of this encounter Visit Diagnoses Not on filedocumented in this encounter Care Teams Production Sanitizer Relationship Specialty Start Date End Date Gilbert Carlson MD [address] [place] [address] PCP - General Internal Medicine 04/15/21 documented as of this encounter Additional Source Comments The information contained in this document represents components of the legal health record. It is not the complete legal health record.[facility]
--- OUTSIDE RECORDS SUMMARY | 2025-04-24 09:54 | XMS_ITS | Clinical Summary ---
Author Organization [facility] Address [address] [place] [address] Care Team Providers Care Trouble Shooting Mechanic Name Role Phone Colin Carlson MD Primary Care Provider [phone] Allergies Active Allergy Reactions Criticality Noted Date [...] Description 01/31/2025 10:30 AM EDT Office Visit [facility] [place] [address] [place] [phone] Ramiro Reynolds MD Familial tremor (Primary Dx); Idiopathic peripheral neuropathy; Vitamin D deficiency, unspecified; Tachycardia; Hypertension, unspecified type ; Mitral valve prolapse 01/31/2025 Travel from Last [...] Care Team (Late st Contact Info) Description 06/20/2025 2:00 PM EDT Procedure visit [facility] [address] [place] [phone] Ramiro Reynolds MD [address] [place] [address] Idris Calvert MD [address] [place] [address] 06/30/2025 3:00 PM EDT Consult [facility] [place] [address] [phone] Ramiro Reynolds MD [address], [place] [address] Cecy Disla MD [address] [place] [address] [place] [address] 08/07/2025 11:00 AM EST Office Visit [facility] [place] [address] [place] [id number] Ramiro Reynolds MD [address] [address] Health Maintenance Due Date Last Done Comments [...] topic Insurance MEDICARE PART A & B [facility] MEDICARE PART A & B [employer] Care Teams Trouble Shooting Mechanic Relationship Specialty Start Date End Date Colin Carlson MD [address] [facility] [place] [address] [id number] PCP - General 09/06/24
--- OUTSIDE RECORDS SUMMARY | 2025-04-24 09:55 | XMS_ITS | Clinical Summary ---
Author Organization [address] [place] [address] [place] [phone] Phone Care Team Providers Care Fish Protector Name Role Phone Gilbert Carlson MD Primary Care Provider [phone] Medications pantoprazole (PROTONIX) 40 mg EC tabletIndicatio [...] Type Department Care Team Description 03/06/2025 Telephone [facility] Cardiology [address] [place] [address] Justine Gregg NP 02/21/[address] [place] [address] Gilbert Carlson MD Medical Records 02/15/2025 Telephone Gastroenterology - [address] [place] [address] Juana Tapia MD Advice Only [...] 2) 1998 Cholesterol Screening (Lipid Panel) 08/19/2022 Falls Risk Assessment 08/19/2022 Hepatitis C Screening 08/19/2022 Medicare Annual Wellness Visit 08/19/2022 Osteoporosis Screening (Bone Density Screening) 08/19/2022 Social Influencers of Health Screening 08/19/2022 Hypertension/CHF/CAD Annual BMP Blood Test 09/06/2022 09/03/2018, 09/03/2018 RSV Immunization Adult Patients (1 - 1-dose 75+ series) 2023 COVID-19 Vaccine (2023-2 5 season) 2024 Depression Screening 09/21/2024 Influenza Vaccine (#1) 2025 9, 08/23/2018 HIB [...] complete this topic Insurance MEDICARE Care Teams Fish Protector Relationship Specialty Start Date End Date Gilbert Carlson MD [address] [place] [address] PCP - General 09/23/16
--- OUTSIDE RECORDS SUMMARY | 2025-04-24 09:55 | XMS_ITS | Clinical Summary ---
Author Organization [facility] Address [address] [place] [address] Care Team Providers Care Medicinal Plant Picker Name Role Phone Unavailable Primary Care Provider [...]
--- OUTSIDE RECORDS SUMMARY | 2025-04-24 09:55 | XMS_ITS | Patient Health Record ---
Author Organization [facility] Address [address] [facility] [address] [place] [address] Care Team Providers Care Wheel Grinder Name Role Phone Colin Carlson MD Primary Care Provider Susan Celaya Unavailable [phone] Allergies Allergen (clinical drug ingredient) Drug/Non Drug [...] 30 Unknown ALPRAZolam 0.5MG ORAL; Duration: -3 [facility] 10/02/2014 Unknown Vitamin D 1000 UNIT 1 tablet Orally Once a day Unknown Melatonin 10 MG as directed Orally Unknown amLODIPine Besylate 2.5 MG 1 Orally daily [facility] 08/06/20 12 Active Atenolol 50MG 1 tablet Orally twic e a day am, pm [facility] 08/06/2012 Active Flexeril ; Duration: -3 [facility] 10/02/2014 Acti ve Gabapentin 300 MG 1 capsule Orally Onc e a day [facility] 08/15/2014 Active Hyoscyamine Sulfate 0.125MG ORAL; Duration: [...] Status Risk Notes Problem Postmenopausal atrophic vaginitis (87016909) Postmenopausal atrophic vaginitis (N95.2) Active confirmed Problem Incomplete uterovaginal prolapse (340449228) Incomplete uterovaginal prolapse (N81.2) Active confirmed Problem Postmenopausal bleeding (73121492) Postmenopausal bleeding (N95.0) Active confirmed Problem Cystocele (940545436) Cystocele, unspecified (N81.10) Active confirmed Problem Atrophy of vulva (820778099) Atrophy of vulva (N90.5) Active confirmed Problem Functional urinary incontinence (046117469) Functional urinary incontinence (R39.81) Active confirmed Problem Anxiety state (693090548) Anxiety state, unspecified (300.00) Active confirmed Major Problem Benign essential hypertension (1945979) Essential hypertension, benign (401.1) Active confirmed Major Problem Menopausal symptom (24443303) Symptomatic menopausal or female climacteric states (627.2) Active confirmed Major Problem Gynecological examination normal (306564271648391) Routine gynecological examination (V72.31) Active confirmed Major Problem Screening for malignant neoplasm of colon (285813077) Special screening for malignant neoplasms, colon (V76.51) Active confirmed Major Plan Of Treatment Pending Test Test Name Order Date BONE DENSITY 09/01/2017 MM Digital Mammo Screening 09/01/2017 Insurance Providers Payer Name Payer Address Payer Phone Subscriber Number Group Number Insured Name Patient Relationship to Insured Coverage Start Date Coverage End Date MEDICARE [address] DINAH PADILLA [id number] SHARRI VELA Self - patient is the insured BC OF [facility] [id number] [place] [address] [phone] [id number] COLIN VELA Spouse - patient is the spouse of the insured Medical (General) History Medical History History ICD Code Anxiety disorder, unspecified F41.9 Essential (primary) hypertension I10 Menopausal and female climacteric states N95.1 Spinal stenosis, site unspecified M48.00 Herniated disc Atrophy of vulva N90.5 Postmenopausal atrophic vaginitis N95.2 Cystocele, unspecified N81.10 Incomplete uterovaginal prolapse N81.2 Mastodynia N64.4 Surgical History Surgery Date(Month/Year) Colonoscopy [facility] Hospitalization History Reason Date(Month/Year) 4 Vaginal Deliveries
== END ==
LOC: HO.CARD 09:25
PROVIDERS: PCP Internal Medicine; Visit Provider Internal Medicine Cardiovascular Disease
DX: R07.9 Chest pain, unspecified (principal); R06.02 Shortness of breath; R00.2 Palpitations; I10 Essential (primary) hypertension
CPT/HCPCS: 78452; 93017; A9500; J0280; J2785

== ENCOUNTER → 2025-04-24 09:29 | Outpatient (BNV) | payer MEDICARE, BC, SELFPAY | PROVIDERS: PCP Internal Medicine | DX: R06.02 Shortness of breath (principal) | CPT/HCPCS: 78452; 93016; 93018 ==

== ENCOUNTER 2025-05-08 14:21 | Outpatient (AMB) | payer MEDICARE, BC, SELFPAY ==
--- OUTSIDE RECORDS SUMMARY | 2025-04-28 07:30 | XMS_ITS | Continuity of Care Document ---
Author Organization [facility] Address [address] [place] [address] Phone Care Team Providers Care Court Registry Officer Name Role Phone Rosalino BURGESS, RUTH, VERONICA, Diaz Unavailable U navailable Allergies, Adverse Reactions, Alerts Substance Reaction Status [...] Duplex Scan-extrem Veins; Uni/ CT & [place] A Duplex Scan-extrem Veins; Uni/ CT & [place] A Ultrason Guidan Needle Bx-rad- CT & [place] A Inj Sclerosing Solution; Sngl- CT & [place] A Varithena, Single Truncal Vein - CT & [place] Varithena, Single Truncal Vein - CT & [place] Duplex Scan-extrem Veins; Uni/ CT & [place] [...] Diagnoses Date Provider Providers Copied on Encounter [facility] [address] [place] [address] [place], [id number], tel:[phone] [facility] Encounter for follow-up examination after completed treatment for conditions other than malignant neoplasmPain in left lower leg 5 Rosalino BURGESS RVT, VERONICA Perales. [address] [place] [address], [place], [id number], [place]. tel:[phone] Referring Provider: Thais Payan [facility] [address], [place], [address]. tel:[phone] [facility], [address] [place] [address] Dr [address]Suite [place]isha Navarro [place], [id number], [place] tel:[phone] [facility] Encounter for follow-up examination after completed treatment for conditions other than malignant neoplasmPain in left lower leg 5 Rosalino BURGESS RVT, VERONICA Perales. [address] [place] [address], [place], [id number], [place]. tel:[phone] Referring Provider: Thais Payan [facility] [address], [place], [address]. tel:[phone] [facility], [address] [place] [address] Dr [address] [place]isha Navarro [place], [id number], [place] tel:[phone] [facility] [place] [facility] [place] Varicose veins of left lower extremity with other complications 5 Rosalino BURGESS RVT, VERONICA Perales. [address] [place] [address], [place], [id number], [place]. tel:[phone] Referring Provider: Thais Payan [facility] [address], [place], [address]. tel:[phone] [facility], [address] [place] [address] Dr [address] Aisha Navarro [place], [id number], [place] tel:[phone] [facility] [place] [facility] [place] Varicose veins of left lower extremity with other complications 5 Rosalino BURGESS RVT, VERONICA Perales. [address] [place] [address], [place], [id number], [place]. tel:[phone] Referring Provider: Thais Payan [facility] [address], [place], [address]. tel:[phone] [facility], [address] [place] [address] Dr [address] [address]Aisha [place], [id number], [place] tel:[phone] [facility] Chronic venous hypertension (idiopathic) with inflammation of left lower extremity 5 Rosalino BURGESS RVT, VERONICA Perales. [address] [place] [address], [place], [id number], [place]. tel:[phone] Referring Provider: Thais Payan [facility] [address], [place], [address]. tel:[phone] [facility], [address] [place] [address] Dr [address] [address]Aisha [place], [id number], [place] tel:[phone] [facility] [place] [facility] [place] Encounter for follow-up examination after completed treatment for conditions other than malignant neoplasmChroni c venous hypertension (idiopathic) with other complications of right lower extremity 5 Karma Lares. [address] [place] [address], [address], [place], [place], [id number], [place]. tel:[phone] Referring Provider: Thais Payan [facility] [address], [place], [address]. tel:[phone] [facility], [address] [place] [address] Dr [address] [address]Aisha [place], [id number], [place] tel:[phone] [facility] [place] [facility] [place] Encounter for follow-up examination after completed treatment for conditions other than malignant neoplasmChroni c venous hypertension (idiopathic) with other complications of right lower extremity 5 Rosalino BURGESS RVT, VERONICA Perales. [address] [place] [address], [place], [id number], [place]. tel:[phone] Referring Provider: Thais Payan [facility] [address], [place], [address]. tel:[phone] [facility], [address] [place] [address] [facility] [address]Aisha [place], [id number], [place] tel:[phone] [facility] Chronic venous hypertension (idiopathic) with inflammation of right lower extremity 5 Rosalino BURGESS RVT, VERONICA Perales. [address] [place] [address] [address], [place], [id number], [place]. tel:[phone] Referring Provider: Thais Payan [facility] [address], [place], [address]. tel:[phone] [facility], [address] [place] [address] [facility] [address] [address]Aisha [place], [id number], [place] tel:[phone] [facility] Varicose veins of right lower extremity with other complications 5 Rosalino BURGESS RVT, VERONICA Perales. [address] [place] [address], [address], [place], [id number], [place]. tel:[phone] Referring Provider: Thais Payan [facility] [address], [place], [address]. tel:[phone] [facility], [address] [place] [address] Dr [address] [address]SuAisha bess [place], [id number], [place] tel:[phone] [facility] - [place] [facility] [place] Chronic venous hypertension (idiopathic) with inflammation of right lower extremity Feb-2 3 5 Rosalino BURGESS RVT, VERONICA Perales. [address] [place] [address], [place], [id number], [place]. tel:[phone] Referring Provider: Thais Payan, [facility] [address], [place], [address]. tel:[phone] Office/Outpt E&M Established 15 Mins- [place] & [place] [facility], [address] [place] [address] Dr [address] [address]SuAisha bess [place], [id number], [place] tel:[phone] [facility] [place] [facility] [place] Chronic venous hypertension (idiopathic) without complications of bilateral lower extremity Feb- 5 Rosalino BURGESS RVT, VERONICA Perales. [address] [place] [address], [place], [id number], [place]. tel:[phone] Referring Provider: Thais Payan, [facility] [address], [place], [address]. tel:[phone] [facility], [address] [place] [address] Dr [address] [address]SuAisha bess [place], [id number], [place] tel:[phone] [facility] [place] [facility] [place] Chronic venous hypertension (idiopathic) without complications of bilateral lower extremity 5 Rosalino BURGESS RVT, VERONICA Perales. [address] [place] [address], [place], [id number], [place]. tel:[phone] Office/Oupt E&M New Pt 60 Mins- CT & [place] [facility], [address] [place] [address] Dr [address] [address]SuAisha bess [place], [id number], [place] tel:[phone] [facility] Chronic venous hypertension (idiopathic) without complications of bilateral lower extremityEssen tial (primary) hypertensionVe nous insufficiency (chronic) (peripheral) 5 Rosalino BURGESS RVT, VERONICA Perales. [address] [facility], [address], [facility] [place], [id number], [place]. tel:[phone] Referring Provider: Thais Payan [facility] [address], [place], [address]. tel:[phone] [facility], [address], [place], [id number], [place] tel:[phone] [facility] Chronic venous hypertension (idiopathic) with other complications of bilateral lower extremity 5 Rosalino BURGESS RVT, VERONICA Perales. [address] [facility], [address], [place], [id number], [place]. tel:[phone] Referring Provider: Thais Payan [facility] [address], [place], [address]. tel:[phone] Family History Family Member Type Diagnosis Age At Onset No Information Payers Payer name Insurance type Covered libertarian ID Authoriza tion(s) Medicare SHAGGY GREENE [id number] Social History Type Description Quantity Date Captured [...] Cynthia Thomas BOOKED Appointment Cynthia Thomas BOOKED History Of Present Illness Encounter Date Complaint History Of Prese nt Illness No Information Functional Status Date Functional Assessmen t No Information Instructions Date Instruction Additional Infor asia Pre and post instruc tions reviewed and provided Related to Chronic venous hypertension (idiopathic) without complications of bilateral lower extremity Patient education booklet given Related to Chronic venous hypertension (idiopathic) without complications of bilateral lower extremity Lifestyle education Related to B theresa mass index (BMI) 27.0-27.9, adult Giving Encouragement to exercise Related to Body mass index (BMI) 27.0-27.9, adult Diet education Related to Body mass index (BMI) 27.0-27.9, adult Lifestyle education Related to B theresa mass index (BMI) 27.0-27.9, adult Giving Encouragement to exercise Related to Body mass index (BMI) 27.0-27.9, adult Diet education Related to Body mass index (BMI) 27.0-27.9, adult Pre and post instruc tions reviewed and provided Related to Chronic venous hypertension (idiopathic) without complications of bilateral lower extremity Patient education booklet given Related to Chronic venous hypertension (idiopathic) without complications of bilateral lower extremity Assessments Type Assessment Date No Information Patient Care Teams Name Effective Dates (start - stop) Status Members No Information
--- NOTE | 2025-05-08 14:28 | A.OFFVIS_ITS ---
Vital Signs 05/08/25 14:29 Height 5 ft 2 in Weight 154 lb 12.232 oz BMI 28.3 BP 122/78 Blood Pressure Location Lt brachial Position Sitting Pulse 55 Intake Visit Reasons: 2 mth f/up s/p; echo/ stress/ 7 day/ home sleep / Intake Note: 2 month echo, stress, 7 holter feeling good Travel Information Center Supervisor Required: No Allergies prochlorperazine (From Compazine) Allergy (Mild, Verified 02/21/25 14:17) low bp Medication List - Last Reconciled 05/08/25 by Matheus Greene MD alprazolam 0.25 mg PO DAILY atenolol 50 mg PO BID atorvastatin 10 mg PO DAILY clonidine HCl 0.1 mg PO .qhs cyclobenzaprine 5 mg PO PRN gabapentin 300 mg PO TID ipratropium bromide intranasal losartan 100 mg PO DAILY pantoprazole 40 mg PO DAILY zolpidem 5 mg PO BEDTIME PRN HPI Comments Details: Cynthia comes for follow-up of test results. She continues to have occasional palpitation but no prolonged irregular heartbeat or palpitation. No orthopnea, PND, leg edema. Continues to have exertional shortness of breath. Her myocardial perfusion imaging was within normal limits. Echocardiogram shows normal LV ejection fraction with no significant valvular abnormality with grade 2 diastolic dysfunction. Holter monitor showed rare PACs and short runs of PACs but no sustained atrial fibrillation. Symptoms of palpitation correlating with short run of PACs. [facility] Medical History HTN (hypertension) Review of Systems Const Denies chills, Denies fatigue, Denies fever(s), Denies frequent falls, Denies w eakness, Denies weight gain and Denies weight loss ENT Denies dizziness Card Denies chest pain, Denies leg edema, Denies lightheadedness, Denies palpi tations, Denies dyspnea, Denies dyspnea on exertion, Denies orthopnea and Denies other (loss of consciousness) Resp Denies cough, Denies dyspnea and Denies dyspnea on exertion GI Denies hematochezia and Denies change in stool character Musc Denies abnormal gait, Denies muscle weakness, Denies numbness, Denies radiating pain into limb and Denies tingling Neuro Denies Abnormal speech present, Denies abnormal gait, Denies dizziness, Denies frequent falls, Denies numbness, Denies tingling and Denies weakness Endo Denies fatigue and Denies palpitations Physical Exam Vital Signs: Last Vital Signs Pulse 55 05/08/25 14:29 BP 122/78 05/08/25 14:29 BMI result Body Mass Index 28.3 Const General: cooperative, comfortable, no acute distress, alert, awake, Physically active, anxious and well groomed Nutritional Appearance: average body habitus Orientation/consciousness: patient oriented x3 Limitations: no limitations HEENT Head: Yes normocephalic and Yes atraumatic Neck Neck: Yes trachea midline, Yes supple and Yes no JVD Resp Effort & Inspection: normal respiratory effort Auscultation: clear to auscultation bilaterally Cardio Jugular venous distension: no JVD Palpation: normal PMI Rate: regular rate Rhythm: regular rhythm Heart sounds: S1 normal heart sound present, S2 normal heart sound present, no click, no gallops and no murmurs GI Auscultation: normal bowel sounds Skin General skin exam: no rashes or lesions noted Neuro General: patient oriented x3 and no focal motor deficits Speech: No Abnormal speech present Extrem General: Yes no clubbing, cyanosis or edema Psych Appearance: grossly normal Affect: Anxious affect present Assessment & Plan Assessment & Plan (1) Diastolic dysfunction: Code(s): I51.89 - Other ill-defined heart diseases Category: Medical Plan: Patient with grade 2 diastolic dysfunction without any signs of congestive heart failure. Most likely related to longstanding hypertension. She has no signs or symptoms of heart failure. We had a long discussion about diastolic dysfunction and discussed that there was no pharmacologic treatment for such. She continues to have exertional shortness of breath and I have recommended to participate in regular physical aerobic training to improve her symptoms of shortness of breath. Signs and symptoms of heart failure were discussed. (2) PAC (premature atrial contraction): Code(s): I49.1 - Atrial premature depolarization Category: Medical Plan: PACs which are symptomatic although rare and short runs. No sustained atrial fibrillation. Continue atenolol therapy. Advised to avoid stimulants. Stress mitigation strategies were discussed. Continue aggressive control blood pressure. Will follow up in the clinic in 1 year's time, sooner p.r.n.. Thank you for allowing me to partake in her care Coding Level of Care Code Est Pt Level 4 (63486) Complex EM visit Add On G2211 Diagnoses Diastolic dysfunction I51.89 PAC (premature atrial contraction) I49.1
[2025-05-08 14:29] VITALS: BP 122/78; PULSE 55; BMI 28.3
--- OUTSIDE RECORDS SUMMARY | 2025-05-08 15:05 | XMS_ITS | Encounter Summary ---
Author Organization [facility] Address [address] [place] [address] Phone Care Team Providers Care Scooter Mechanic Name Role Phone Gilbert Carlson MD Primary Care Provider [phone] Encounter Details Date Type Department Care Team (Late st Contact Info) Description 06/28/2021 Procedure Pass [facility] [address] [place] [address] Social History Tobacco Use Types Packs/Day Years [...] on filedocumented in this encounter Care Teams Scooter Mechanic Relationship Specialty Start Date End Date Gilbert Carlson MD [address] [place] [address] PCP - General Internal Medicine 04/15/21 documented as of this encounter Additional Source Comments The information contained in this document represents components of the legal health record. It is not the complete legal health record.[facility]
--- OUTSIDE RECORDS SUMMARY | 2025-05-08 15:05 | XMS_ITS | Clinical Summary ---
Author Organization [address] [place] [address] [place] [phone] Phone Care Team Providers Care Hvac Project Manager Name Role Phone Gilbert Carlson MD Primary Care Provider [phone] Medications pantoprazole (PROTONIX) 40 mg EC tabletIndicatio [...] Type Department Care Team Description 03/06/2025 Telephone [facility] Cardiology [address] [address] [place] [address] Justine Gregg NP 02/21/[address] [place] [address] Gilbert Carlson MD Medical Records 02/15/2025 Telephone Gastroenterology - [address] [place] [address] Juana Tapia MD Advice Only [...] complete this topic Insurance MEDICARE Care Teams Hvac Project Manager Relationship Specialty Start Date End Date Gilbert Carlson MD [address] [place] [address] PCP - General 09/23/16
--- OUTSIDE RECORDS SUMMARY | 2025-05-08 15:05 | XMS_ITS | Clinical Summary ---
Author Organization [facility] Address [address] [place] [address] Care Team Providers Care User Experience Researcher Name Role Phone Colin Carlson MD Primary Care Provider [phone] Allergies Active Allergy Reactions Criticality Noted Date [...] 09/27/2024 Hypertension 09/27/2024 Mitral valve prolapse 09/27/2024 Family History Medical History Relation Name Comments [...] Description 06/20/2025 2:00 PM EDT Procedure visit [facility] Neuromuscular [facility] [address] [facility] [address] [place] [address] Ramiro [place] MD [address] [address] Idris Calvert MD [address] [place] [address] 06/30/2025 3:00 PM EDT Consult [facility] Heart [facility] V[facility] [place] [address] [facility] [address] [place] [phone] Ramiro [place] MD [address] [facility] [address] [place], [place] [address] Cecy Disla MD [address] [place] [address] [place] [address] 08/07/2025 11:00 AM EST Office Visit [facility] [place] [address] [place] [id number] Ramiro [place] MD [address] [facility] [address] [place] [address] Health Maintenance Due Date Last Done Comments [...] topic Insurance MEDICARE PART A & B [facility] MEDICARE PART A & B [facility] Care Teams User Experience Researcher Relationship Specialty Start Date End Date Colin Carlson MD [address] [address] PCP - General 09/06/24
--- OUTSIDE RECORDS SUMMARY | 2025-05-08 15:05 | XMS_ITS | Clinical Summary ---
Author Organization [facility] Address [address] [place] [address] Care Team Providers Care Messenger Office Name Role Phone Unavailable Primary Care Provider [...]
--- OUTSIDE RECORDS SUMMARY | 2025-05-08 15:05 | XMS_ITS | Patient Health Record ---
Author Organization [facility] Address [address] [facility] [address] [place] [address] Care Team Providers Care Frog Catcher Name Role Phone Colin Carlson MD Primary Care Provider Susan Celaya Unavailable [phone] Allergies Allergen (clinical drug ingredient) Drug/Non Drug [...] 30 Unknown ALPRAZolam 0.5MG ORAL; Duration: -3 [facility] 10/02/2014 Unknown Vitamin D 1000 UNIT 1 tablet Orally Once a day Unknown Melatonin 10 MG as directed Orally Unknown amLODIPine Besylate 2.5 MG 1 Orally daily [facility] 08/06/20 12 Active Atenolol 50MG 1 tablet Orally twic e a day am, pm [facility] 08/06/2012 Active Flexeril ; Duration: -3 [facility] 10/02/2014 Acti ve Gabapentin 300 MG 1 capsule Orally Onc e a day [facility] 08/15/2014 Active Hyoscyamine Sulfate 0.125MG ORAL; Duration: [...] Status Risk Notes Problem Postmenopausal atrophic vaginitis (20381232) Postmenopausal atrophic vaginitis (N95.2) Active confirmed Problem Incomplete uterovaginal prolapse (999723406) Incomplete uterovaginal prolapse (N81.2) Active confirmed Problem Postmenopausal bleeding (04091505) Postmenopausal bleeding (N95.0) Active confirmed Problem Cystocele (109383606) Cystocele, unspecified (N81.10) Active confirmed Problem Atrophy of vulva (877738508) Atrophy of vulva (N90.5) Active confirmed Problem Functional urinary incontinence (054888375) Functional urinary incontinence (R39.81) Active confirmed Problem Anxiety state (071148355) Anxiety state, unspecified (300.00) Active confirmed Major Problem Benign essential hypertension (4637807) Essential hypertension, benign (401.1) Active confirmed Major Problem Menopausal symptom (30725631) Symptomatic menopausal or female climacteric states (627.2) Active confirmed Major Problem Gynecological examination normal (691149197534707) Routine gynecological examination (V72.31) Active confirmed Major Problem Screening for malignant neoplasm of colon (001097369) Special screening for malignant neoplasms, colon (V76.51) Active confirmed Major Plan Of Treatment Pending Test Test Name Order Date BONE DENSITY 09/01/2017 MM Digital Mammo Screening 09/01/2017 Insurance Providers Payer Name Payer Address Payer Phone Subscriber Number Group Number Insured Name Patient Relationship to Insured Coverage Start Date Coverage End Date MEDICARE [address] DINAH PADILLA [id number] SHARRI VELA Self - patient is the insured BC [facility] [id number] [place] [address] [id number] COLIN VELA Spouse - patient is the spouse of the insured Medical (General) History Medical History History ICD Code Anxiety disorder, unspecified F41.9 Essential (primary) hypertension I10 Menopausal and female climacteric states N95.1 Spinal stenosis, site unspecified M48.00 Herniated disc Atrophy of vulva N90.5 Postmenopausal atrophic vaginitis N95.2 Cystocele, unspecified N81.10 Incomplete uterovaginal prolapse N81.2 Mastodynia N64.4 Surgical History Surgery Date(Month/Year) Colonoscopy [facility] Hospitalization History Reason Date(Month/Year) 4 Vaginal Deliveries
== END 2025-05-08 15:21 | disposition home or self-care (01) ==
LOC: HO.HCS 14:21
PROVIDERS: PCP Internal Medicine; Visit Provider Internal Medicine Cardiovascular Disease
DX: I51.89 Other ill-defined heart diseases (principal); I49.1 Atrial premature depolarization
CPT/HCPCS: 99214; G2211

== ENCOUNTER → 2025-05-08 14:21 | Outpatient (BNVA) | payer MEDICARE, BC, SELFPAY | PROVIDERS: PCP Internal Medicine; Visit Provider Internal Medicine Cardiovascular Disease | DX: I51.89 Other ill-defined heart diseases (principal); I49.1 Atrial premature depolarization | CPT/HCPCS: 99212 ==